=== PATIENT | male | born 1975 | race Caucasian/White ===

== ENCOUNTER 2017-06-16 08:23 | Emergency (ER) | payer SELFPAY ==
[2017-06-16] MEDS ORDERED: OMEPRAZOLE PO (08:31)
[2017-06-16] MEDS ORDERED: PROZAC PO (08:32)
== END 2017-06-16 09:04 | disposition home or self-care (01) ==
LOC: SED 08:23
DX: L02.215 Cutaneous abscess of perineum (principal)
CPT/HCPCS: 99283